=== PATIENT | male | born 1990 | race Caucasian/White ===

== ENCOUNTER 2022-10-27 11:58 | Emergency (ER) | payer MEDICAID ==
[2022-10-27] MEDS ORDERED: Lidocaine 2% Viscous Solution 15 ML UD PO ONE (12:55)
[2022-10-27] MEDS ORDERED: Clindamycin HCl 150 MG Cap PO ONE (12:55)
== END 2022-10-27 13:15 | disposition home or self-care (01) ==
LOC: DL.ED 11:58
DX: K04.7 Periapical abscess without sinus (principal); I10 Essential (primary) hypertension; E05.90 Thyrotoxicosis, unspecified without thyrotoxic crisis or storm; F17.210 Nicotine dependence, cigarettes, uncomplicated; Z88.0 Allergy status to penicillin; Z88.8 Allergy status to other drugs, medicaments and biological substances; Z79.899 Other long term (current) drug therapy
CPT/HCPCS: 99282; A9270

== ENCOUNTER 2022-12-20 09:53 | Emergency (ER) | payer MEDICAID ==
[2022-12-20] MEDS ORDERED: Clindamycin HCl 150 MG Cap PO ONE ×2 (09:54→10:06)
[2022-12-20] MEDS ORDERED: Acetaminophen/Codeine 300-30 MG Tab PO ONE ×2 (09:54→10:07)
[2022-12-20] MEDS ORDERED: Lidocaine 2% Viscous Solution 15 ML UD PO ONE (10:06)
[2022-12-20] MEDS ORDERED: Acetaminophen/Codeine 300-30 MG Tab ONE (10:15)
[2022-12-20] MEDS ORDERED: Clindamycin HCl 150 MG Cap ONE (10:15)
== END 2022-12-20 10:30 | disposition home or self-care (01) ==
LOC: DL.ED 09:53
DX: K04.7 Periapical abscess without sinus (principal); I10 Essential (primary) hypertension; E05.90 Thyrotoxicosis, unspecified without thyrotoxic crisis or storm; Z88.0 Allergy status to penicillin; Z88.6 Allergy status to analgesic agent; Z79.899 Other long term (current) drug therapy
CPT/HCPCS: 99282; A9270

== ENCOUNTER 2023-01-07 11:03 | Emergency (ER) | payer MEDICAID ==
[2023-01-07] MEDS ORDERED: Sodium Chloride 0.9% 10 ML Syringe FLUSH PRN (11:17)
[2023-01-07] MEDS ORDERED: Acetaminophen 500 MG Tab PO ONE (12:01)
[2023-01-07 12:16] LABS: ANION GAP 12.1 mEq/L (7-13)
[2023-01-07 12:18] LABS: CORONAVIRUS COVID-19 NAA NEGATIVE (NEGATIVE)
[2023-01-07] MEDS ORDERED: Furosemide 40 MG/4 ML VIAL IVPUSH ONE (13:02)
== END 2023-01-07 13:00 | disposition home or self-care (01) ==
LOC: DL.ED 11:03
DX: K04.7 Periapical abscess without sinus (principal); R60.0 Localized edema; I10 Essential (primary) hypertension; E03.9 Hypothyroidism, unspecified; Z88.0 Allergy status to penicillin; Z88.5 Allergy status to narcotic agent; Z88.8 Allergy status to other drugs, medicaments and biological substances; Z79.899 Other long term (current) drug therapy; Z20.822 Contact with and (suspected) exposure to COVID-19
CPT/HCPCS: 0240U; 36415; 71046; 80053; 81001; 83880; 84484; 85025; 93005; 93010; 99283; 99284; A9270-GY; J3490

== ENCOUNTER 2023-02-28 10:52 | Emergency (ER) | payer MEDICAID ==
[2023-02-28] MEDS ORDERED: Take Home: LORazepam 1 MG Tab, 2 Tab Pack PO ONE (12:02)
== END 2023-02-28 12:15 | disposition home or self-care (01) ==
LOC: DL.ED 10:52
DX: F41.1 Generalized anxiety disorder (principal); F43.0 Acute stress reaction; I10 Essential (primary) hypertension; E03.9 Hypothyroidism, unspecified; Z88.5 Allergy status to narcotic agent; Z88.8 Allergy status to other drugs, medicaments and biological substances
CPT/HCPCS: 99283; A9270-GY